=== PATIENT | female | born 1970 | race Caucasian/White ===

== ENCOUNTER → 2024-07-10 09:50 | Outpatient (BNVA) | payer OTHER, SELFPAY | PROVIDERS: Visit Provider Physician Assistant Medical | DX: S20.212A Contusion of left front wall of thorax, initial encounter (principal); S22.42XA Multiple fractures of ribs, left side, initial encounter for closed fracture; W03.XXXA Other fall on same level due to collision with another person, initial encounter | CPT/HCPCS: 71101; 99204 ==

== ENCOUNTER → 2024-07-17 15:10 | Outpatient (BNVA) | payer OTHER, SELFPAY | PROVIDERS: Visit Provider Physician Assistant Medical | DX: S22.42XD Multiple fractures of ribs, left side, subsequent encounter for fracture with routine healing (principal); W03.XXXD Other fall on same level due to collision with another person, subsequent encounter | CPT/HCPCS: 99213 ==

== ENCOUNTER → 2024-08-02 15:21 | Outpatient (BNVA) | payer OTHER, SELFPAY | PROVIDERS: Visit Provider Physician Assistant Medical | DX: S20.212D Contusion of left front wall of thorax, subsequent encounter (principal); S22.42XD Multiple fractures of ribs, left side, subsequent encounter for fracture with routine healing; W03.XXXD Other fall on same level due to collision with another person, subsequent encounter; Z02.79 Encounter for issue of other medical certificate | CPT/HCPCS: 99213 ==